=== PATIENT | female | born 1945 | race Two or more races ===

== ENCOUNTER 2024-02-25 19:18 | Emergency (ER) | payer MEDICAID ==
[~2024-02-25] VITALS: Ht 134.6 cm; Wt 61.8 kg
[2024-02-25 19:23] VITALS: TEMP 98.7
[2024-02-25] MEDS ORDERED: OXYC-38 PO (22:16)
[2024-02-25] MEDS: OxyCODONE HCL/ACETAMINOPHEN 5-325 MG TABLET PO ONE (22:16)
[2024-02-25 22:25] VITALS: BP 160/78; PULSE 82; RESP 18; O2SAT 97
== END 2024-02-25 22:42 | disposition home or self-care (01) ==
LOC: EMS 19:18
DX: S42.351A Displaced comminuted fracture of shaft of humerus, right arm, initial encounter for closed fracture (principal); M25.531 Pain in right wrist; M79.641 Pain in right hand; I10 Essential (primary) hypertension; W19.XXXA Unspecified fall, initial encounter; Y93.89 Activity, other specified; Y92.89 Other specified places as the place of occurrence of the external cause; Y99.8 Other external cause status
CPT/HCPCS: 29105; 99284; 73030-TC; 73060-TC; 73090-TC; Z7502; Z7610